=== PATIENT | female | born 2000 | race Caucasian/White ===

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

== ENCOUNTER → 2020-02-01 | Outpatient (REF) | payer OTHER ==
[2020-02-01 20:26] LABS: FREE T4 1.19 NG/DL (0.78-1.33); THYROID STIMULATING HORMONE 0.394 uIU/ML (0.463-3.98)
== END ==
LOC: M LRY 16:10
PROVIDERS: ATTEND Physician Assistant
DX: E03.9 Hypothyroidism, unspecified (principal)